=== PATIENT | male | born 1985 | race Caucasian/White ===

== ENCOUNTER 2018-01-03 11:10 | Emergency (ER) | payer OTHER, SELFPAY ==
[2018-01-03 11:13] VITALS: BP 118/79; PULSE 67; RESP 16; TEMP 36.6; O2SAT 99; BMI 23.6
--- NOTE | 2018-01-03 11:24 | ED.RN ---
employer in [employer]. will clarify bwc on arrival.
--- NOTE | 2018-01-03 11:40 | RAD_ITS ---
STUDY: X-RAY - RIGHT TIBIA AND FIBULA REASON FOR EXAM: Male, 32 years old. Pain following a fall. TECHNIQUE: 2 view(s) N for images of the tibia and fibula were obtained. COMPARISON: None. FINDINGS: Comminuted nondisplaced fracture of the distal tibial diaphysis. Nondisplaced transverse fracture of the mid fibular diaphysis. There is non-specific soft tissue swelling. RAD/Tibia & Fibula 2 Views IMPRESSION: Nondisplaced fracture through the mid diaphysis of the fibula and comminuted nondisplaced fracture of the distal tibial diaphysis. Soft tissue swelling. Electronically Signed: Rey Nava MD at 12:28 EST Tel [phone], Service support ,
[2018-01-03] MEDS: HYDROmorphone 1 MG/ML Syringe IV (12:30)
[2018-01-03 12:38] VITALS: BP 124/78; PULSE 82; RESP 16; O2SAT 98
--- NOTE | 2018-01-03 12:54 | ED.DCSUM_ITS ---
- ER Visit Summary Date of Service: 01/03/18 Chief Complaint: Fall [] History of Present Illness: The patient is a 32 M [presents to the emergency department after sustaining a fall. 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 Patient states that he heard and felt a crack and noted instant deformity and inability to ambulate. Patient resents via EMS. Patient was given pain medication via EMS. Patient denies striking his head or loss of consciousness. Patient denies any other injuries.] Physical Examination: HEENT-PERRLA, EOMI. Cranial nerves II through XII grossly intact. TMs clear. Mucous membranes moist. No adenopathy. No C-spine tenderness on palpation. Normal active range of motion is painless. Cardiovascular-regular rate and rhythm without murmur or ectopy Lungs-clear to auscultation, chest wall stable without crepitus or subcu emphysema Abdomen-normoactive bowel sounds, soft, nontender, no rebound or rigidity, no peritoneal signs. Extremities-intact ?4, normal range of motion, normal pulses. Right leg-patient presents with right leg in an air splint and he keeps the foot rotated laterally. There is obvious deformity to the mid tib-fib region. Patient has tenderness to palpation over this area. The compartments are soft. No open areas noted. Patient has normal dorsal pedal and posterior tibial pulses as well as popliteal pulses. Test Results: [X-rays of the right tib fib were obtained which did show a fracture of the mid fibula as well as mid tibia.] Emergency Department Course and Treatment: [Patient was medicated with Dilaudid 1 mg IV. Patient was placed in a stirrup and posterior splint. Patient did not want me to place a long-leg splint. Case was discussed with orthopedic surgeon on-call Dr. Delonte Beyer who will see patient in the office.] Treatment Plan: [Patient will be given a prescription for [place] for pain and he is advised to ice and elevate the extremity. Patient was advised on signs and symptoms of compartment syndrome and advised to return for worsening pain, pallor, paresthesias, or condition should worsen anyway.] Disposition: [Discharged home in stable condition] Impression: [Mechanical fall Right tibia and fibula fracture] This note was generated with [employer] dictation software. It may contain incorrect words, spelling, and punctuation that were not noted in review of the chart prior to signing ED Disposition - Plan for ED Patient: Chief Complaint: Fall Referrals: Care Physician,No Primary [Primary Care Provider] -
--- NOTE | 2018-01-03 12:55 | ED.DEP ---
ED Disposition - Plan for ED Patient: Chief Complaint: Fall Instructions: ED Mechanical Fall, ED Fx Lower Ext Prescriptions: Hydrocodone Bitart/Apap 5-325 [[place] 5MG-325MG] 1 - 2 tab PO Q4H PRN PRN 2 Days #20 tab PRN Reason: Pain Referrals: Care Physician,No Primary [Primary Care Provider] - Delonte Beyer MD [STAFF PHYSICIAN] - 3-5 Days
--- NOTE | 2018-01-03 12:58 | DCINST.ED_ITS ---
ED Disposition - Plan for ED Patient: Chief Complaint: Fall Instructions: ED Mechanical Fall, ED Fx Lower Ext Prescriptions: Hydrocodone Bitart/Apap 5-325 [[place] 5MG-325MG] 1 - 2 tab PO Q4H PRN PRN 2 Days #20 tab PRN Reason: Pain Referrals: Care Physician,No Primary [Primary Care Provider] - Delonte Beyer MD [STAFF PHYSICIAN] - 3-5 Days
[2018-01-03 13:54] VITALS: BP 120/74; PULSE 68; RESP 16; O2SAT 98
--- OUTSIDE RECORDS SUMMARY | 2018-02-15 03:31 | XMS RPT_ITS ---
:1985 Author Organization [facility] Care Team Providers Name Role Phone Yonischung Diamond Attending Unavailable Primay Care Physicia, No Primary Care Unavailable PROBLEMS PROBLEMS DATE TYPE CONDITION / CODE ATTENDING STATUS SOURCE 01/05/2018 Unknown S82.209A - Joel, Remus Active [place] Unspecified [facility] fracture of [facility] of unspecified Repository tibia, initial encounter for closed fracture / S82.209A(ICD-10) PROCEDURES PROCEDURES No Procedure Records FoundRESULTS RESULTS DISCHARGE INSTRUCTION Observed: 01/03/2018 Status: F Source: [place] 12:58 PM [facility] Medical Records Department [address] [place] [id number] Discharge Instruction 01/03/18 1255 MR#: [id number] Acct: [id number] Name: CHRISTIANO STODDARD III Rep #: [id number] : 1985 32 From: Diamodn Maldonado DO PCP: Care Physician, No Primary Status: REG ER ED Disposition - Plan for ED Patient: Chief Complaint: Fall Instructions: ED Mechanical Fall, ED Fx Lower Ext Prescriptions: Hydrocodone Bitart/Apap 5-325 [[place] 5MG-325MG] 1 - 2 tab PO Q4H PRN PRN 2 Days #20 tab PRN Reason: Pain Referrals: Care Physician,No Primary [Primary Care Provider] - Delonte Beyer MD [STAFF PHYSICIAN] - 3-5 Days What to do if you have Problems For any increased pain, shortness of breath, bleeding, nausea or vomiting, chest pain, or any unexpected problems, contact your Primary Care Provider. Call [facility] [facility] ([phone]) or report to the closest Emergency Room. Call 911 if necessary. 01/03/18 1258 <Electronically signed by Diamond Maldonado DO> Date Diamond Maldonado DO Cosigner Signature (If Indicated): Date _ CC: No Primary Care Physician EMERGENCY DEPARTMENT Observed: 01/03/2018 Status: F Source: [place] SUMMARY 12:54 PM [facility] Medical Records Department [address] [place] [address] Emergency Department Summary 01/03/18 1250 MR#: [id number] Acct: [id number] Name: CHRISTIANO STODDARD III Rep #: [id number] : 1985 32 From: Diamond Maldonado DO PCP: Care Physician, No Primary Status: REG ER - ER Visit Summary Date of Service: 01/03/18 Chief Complaint: Fall [] History of Present Illness: The patient is a 32 M [presents to the emergency department after sustaining a fall. 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 Patient states that he heard and felt a crack and noted instant deformity and inability to ambulate. Patient resents via EMS. Patient was given pain medication via EMS. Patient denies striking his head or loss of consciousness. Patient denies any other injuries.] Physical Examination: HEENT-PERRLA, EOMI. Cranial nerves II through XII grossly intact. TMs clear. Mucous membranes moist. No adenopathy. No C-spine tenderness on palpation. Normal active range of motion is painless. Cardiovascular-regular rate and rhythm without murmur or ectopy Lungs-clear to auscultation, chest wall stable without crepitus or subcu emphysema Abdomen-normoactive bowel sounds, soft, nontender, no rebound or rigidity, no peritoneal signs. Extremities-intact 4, normal range of motion, normal pulses. Right leg-patient presents with right leg in an air splint and he keeps the foot rotated laterally. There is obvious deformity to the mid tib-fib region. Patient has tenderness to palpation over this area. The compartments are soft. No open areas noted. Patient has normal dorsal pedal and posterior tibial pulses as well as popliteal pulses. Test Results: [X-rays of the right tib fib were obtained which did show a fracture of the mid fibula as well as mid tibia.] Emergency Department Course and Treatment: [Patient was medicated with Dilaudid 1 mg IV. Patient was placed in a stirrup and posterior splint. Patient did not want me to place a long-leg splint. Case was discussed with orthopedic surgeon on-call Dr. Delonte Beyer who will see patient in the office.] Treatment Plan: [Patient will be given a prescription for [place] for pain and he is advised to ice and elevate the extremity. Patient was advised on signs and symptoms of compartment syndrome and advised to return for worsening pain, pallor, paresthesias, or condition should worsen anyway.] Disposition: [Discharged home in stable condition] Impression: [Mechanical fall Right tibia and fibula fracture] This note was generated with [employer] dictation software. It may contain incorrect words, spelling, and punctuation that were not noted in review of the chart prior to signing ED Disposition - Plan for ED Patient: Chief Complaint: Fall Referrals: Care Physician,No Primary [Primary Care Provider] - What to do if you have Problems For any increased pain, shortness of breath, bleeding, nausea or vomiting, chest pain, or any unexpected problems, contact your Primary Care Provider. Call [facility] ([phone]) or report to the closest Emergency Room. Call 911 if necessary. 01/03/18 1254 <Electronically signed by Diamond Maldonado DO> Date Diamond Maldonado DO Cosigner Signature (If Indicated): Date CC: No Primary Care Physician TIBIA AND FIBULA Observed: 01/03/2018 Status: F Source: [place] 2 VIEWS 11:36 AM [facility] REPOSITORY [facility] [place] [address] Tibia AND Fibula 2 Views MR#: [id number] Acct: [id number] Name: CHRISTIANO STODDARD III Rep #: [id number] : 1985 M 32 From: Rey Nava MD PCP: Care Physician, No Primary Status: REG ER Study: Tibia AND Fibula 2 Views Date of Exam: 01/03/18 Exam# [id number] Ordering Dr: Diamond Maldonado DO STUDY: X-RAY - RIGHT TIBIA AND FIBULA REASON FOR EXAM: Male, 32 years old. Pain following a fall. TECHNIQUE: 2 view(s) N for images of the tibia and fibula were obtained. COMPARISON: None. FINDINGS: Comminuted nondisplaced fracture of the distal tibial diaphysis. Nondisplaced transverse fracture of the mid fibular diaphysis. There is non-specific soft tissue swelling. RAD/Tibia AND Fibula 2 Views IMPRESSION: Nondisplaced fracture through the mid diaphysis of the fibula and comminuted nondisplaced fracture of the distal tibial diaphysis. Soft tissue swelling. Electronically Signed: Rey Nava MD at 12:28 EST Tel [phone], Service support , CC: No Primary Care Physician; Diamond Maldonado DO Steel Analyst: Signed ALLERGIES ALLERGIES DATE TYPE / CODE NAME / CODE REACTION SEVERITY SOURCE 01/03/2018 Drug No Known Unknown [facility] Allergy/4160 Allergies/F00 Hospital 25685(SNOMED [id number](RXNOR Repository CT) M) ENCOUNTERS ENCOUNTERS ADMIT/DISCHARGE ACCOUNT ADMITTING ENCOUNTER LOCATION SOURCE NUMBER CLASS 01/03/2018/ [id number] Emergency [place] 8 [facility] ing:ED Repository PAYERS PAYERS ENCOUNTER GUARANTOR PAYER SUBSCRIBER SOURCE 01/03/2018 CHRISTIANO STODDARD Primary CHRISTIANO Savana RICHI [place] [id number] SR Insurance:[facility] IIIDOB: [address] [id number] Hospital [address]Bkc: [phone]) Number: Repository [phone] () [id number] Date:[id number], [place] [address]II: 01/03/2018 Secondary NOT GIVENUNK [place] Insurance:SELF PAY [facility] Number: Effective Repository Date:2018-01-03
== END 2018-01-03 13:55 | disposition home or self-care (01) ==
PROVIDERS: Emergency Provider Emergency Medicine
DX: S82.201A Unspecified fracture of shaft of right tibia, initial encounter for closed fracture (principal); W01.0XXA Fall on same level from slipping, tripping and stumbling without subsequent striking against object, initial encounter
CPT/HCPCS: 73590; 96374; 99285; J7030; A4216